=== PATIENT | female | born 1985 ===

== ENCOUNTER → 2020-12-17 | Outpatient (REF) | payer OTHER | LOC: M LAB REF 15:41 | PROVIDERS: ATTEND Physician Assistant | DX: J06.9 Acute upper respiratory infection, unspecified (principal) ==

== ENCOUNTER → 2021-02-11 | Outpatient (REF) | payer OTHER | LOC: M LAB REF 15:45 | PROVIDERS: ATTEND Family Medicine | DX: J06.9 Acute upper respiratory infection, unspecified (principal) ==